=== PATIENT | male | born 1965 | race Caucasian/White ===

== ENCOUNTER → 2024-06-09 14:38 | Outpatient (REF) | payer OTHER, SELFPAY | LOC: RAD 14:38 | PROVIDERS: ATTENDING PHYSICIAN Nurse Practitioner Family | DX: R10.9 Unspecified abdominal pain (principal) | CPT/HCPCS: 76775 ==

== ENCOUNTER → 2024-07-22 10:21 | Outpatient (REF) | payer OTHER, SELFPAY | LOC: RAD 10:21 | PROVIDERS: ATTENDING PHYSICIAN Nurse Practitioner Family | DX: R10.9 Unspecified abdominal pain (principal) | CPT/HCPCS: 76882 ==

== ENCOUNTER 2024-09-07 11:48 | Emergency (ER) | payer OTHER, SELFPAY ==
[2024-09-07 11:57] VITALS: BP 136/89
[2024-09-07 12:19] LABS: % Basophils 0.4 % (0-2); % Eosinophils 1.4 % (0-6); % Immature Granulocytes 0.4 % (0-0.5); % Lymphocytes 21.4 % (20.5-51.1); % Monocytes 9.4 % (1.7-9.3); Absolute Eosinophils 0.1 10^3/uL (0-0.7); Absolute Lymphocytes 1.2 10^3/uL (1.2-3.4); Absolute Monocytes 0.5 10^3/uL (0.1-0.6); Absolute Neutrophils 3.7 10^3/uL (1.4-6.5); Hematocrit 43.2 % (39.0-52.0); Hemoglobin 14.9 g/dL (13.0-18.0); Mean Corp Hgb Conc. 34.5 g/dL (33.0-37.0); Mean Corpuscular Hgb 32.3 pg (27.0-31.0); Mean Corpuscular Volume 93.7 fL (80.0-94.0); Mean Platelet Volume 10.1 fL (7.4-10.4); Nucleated Red Blood Cells % 0 % (-); Platelet Count 233 10^3/uL (130-400); Red Blood Cell Count 4.61 10^6/uL (4.70-6.10); Red Cell Dist. Width 12.6 % (11.5-14.5); White Blood Cell Count 5.6 10^3/uL (4.8-10.8)
[2024-09-07 12:41] LABS: Blood Urea Nitrogen 18 mg/dl (9-20); Glucose 107 mg/dl (70-99); eGFR > 60.00
[2024-09-07 12:42] LABS: ALT (SGPT) 30 U/L (0-50); AST (SGOT) 33 U/L (17-59); Albumin 4.6 g/dl (3.5-5.0); Alkaline Phosphatase 52 U/L (38-126); Calcium 9.9 mg/dl (8.4-10.2); Carbon Dioxide 30 mmol/L (22-30); Chloride 108 mmol/L (98-107); Potassium 4.7 mmol/L (3.5-5.1); Sodium 142 mmol/L (135-145); Total Bilirubin 0.9 mg/dl (0.2-1.3); Total Protein 7.1 g/dl (6.3-8.2)
--- NOTE | 2024-09-07 14:33 | ED.GENMED ---
History of Present Illness
General
Chief Complaint: Back Pain
Source: patient
Exam Limitations: none
Time Seen by Provider: 09/07/24 14:25
History of Present Illness
History of Present Illness:
See MDM
Past History
Past History
ED Past Medical History: HTN, Hypercholesterolemia and Other
ED Past Surgical History: None
Social History
Tobacco: Non-smoker
Alcohol: None
Drug: None
Personal:
Living: with family
Employment: Employed
Family History
Family History: Other (father with atrial fibrillation)
Phy Exam
Physical Exam
Physical Exam:
See MDM
Course
Orders/Labs/Results
Orders:
Orders
09/07/24 12:05
Complete Blood Count/With Diff Urgent
Comprehensive Metabolic Panel Urgent
09/07/24 14:32
Ketorolac [Toradol] 30 mg IV NOW STA
09/07/24 14:33
CT Abd/pelvis W Iv Cont Urgent
Comment:
Reason For Exam: R flank pain x 5 months
09/07/24 14:39
Urinalysis Reflex To Culture Urgent
Date Specimen was Collected: 09/07/24
Time Specimen was Collected: 14:38
Abnormal Lab Results
09/07/24 09/07/24
12:05 14:39
RBC 4.61 L 10^6/uL
(4.70-6.10)
MCH 32.3 H pg
(27.0-31.0)
Monocytes % 9.4 H %
(1.7-9.3)
Chloride 108 H mmol/L
(98-107)
Glucose 107 H mg/dl
(70-99)
Urine Ketones 1+ A
(Negative)
09/07/24 12:05
09/07/24 12:05
Vital Signs
Initial and Last Documented VS:
Initial Vital Signs
Temp Pulse Resp BP Pulse Ox
97.9 F 85 16 136/89 97
09/07/24 11:57 09/07/24 11:57 09/07/24 11:57 09/07/24 11:57 09/07/24 11:57
Last Documented Vital Signs
Temp Pulse Resp BP Pulse Ox
97.9 F 64 18 133/92 97
09/07/24 11:57 09/07/24 14:43 09/07/24 14:43 09/07/24 14:43 09/07/24 14:43
MDM/Problems Addressed
Differential Diagnosis Includes:
HPI and MDM Narrative:
58-year-old male presenting for evaluation of right flank pain that radiates to his right groin. This has been going on for about 5 months, per patient. He states he did a musculoskeletal ultrasound and they did a kidney ultrasound. Other than an
incidental lipoma on his right flank, they have not yet figured out the problem. He states it is not worse with any sort of food intake or exertion. He denies urinary symptoms.
Blood work was done prior to my assessment showing no significant lab abnormalities. On my exam, I cannot reproduce discomfort. He denies rash. Given the persistent nature of symptoms, will obtain CT scan. Will give dose of Toradol.
Physical exam
General: Well appearing and non-toxic
HEENT: protecting airway
Neck: appears supple
CV: No evidence of cyanosis
Resp: No accessory muscle use
Abd: Non-distended. Soft and nontender
Extremities: No deformities
Neuro: alert
Psych: Normal affect
Skin: Intact
Problems Addressed including Acute and Chronic Conditions affecting care:
1. Right flank pain
Acuity: Chronic
Prognosis: stable
Details: Given chronicity, will obtain CT scan
Updates
CT does show large stool burden. There is no other pathology noted. Discussed MiraLAX for next 2 days and return precautions
Differential Diagnosis (but not limited to): Musculoskeletal pain, kidney stone, colitis
Testing considered: Abdominal x-ray
Drug therapy (if applicable): OTC meds, please see d/c instruction regarding Rx drugs
Amount and/or Complexity of Data Reviewed
Clinical info obtained from: Patient
External data reviewed: Recent renal ultrasound showing no acute abnormality
Labs I independently reviewed (but not limited to): White blood cell count normal, LFTs normal, creatinine normal
Radiology: The CT scan was personally and independently reviewed. In addition, official CT report reviewed.
Pulse Ox: not hypoxic
EKG independently reviewed: N/A
Oncology Admin: N/A
Critical Care: N/A
Risk of Complication:
Social Determinants of health: Good social support
Discussed with other providers: N/A
Escalation of Care includes Admit/Obs: After being observed in the Emergency Department, pt stable for discharge.
Occasional wrong word or 'sound a like' substitutions may have occurred due to the inherent limitations of voice recognition software. Read the chart carefully and recognize, using context, where substitutions have occurred.
*Critical Care Note
Total Time (30-74mins, 75-104mins- exclusive of procedures): Not Applicable
ED Attending Note
-
Portions of this chart may have been created with voice recognition software.� Occasional wrong word or��sound alike� substitutions may have occurred due to the inherent limitations of voice recognition software.
Discharge Plan
Departure
Patient Disposition: Home (Routine Discharge)
Date of Disposition: 09/07/24
Time of Disposition: 17:49
Patient with high blood pressure during this ER visit?: No
Discharge Problem:
Abdominal pain
Prescriptions:
No Action
Aciphex
20 mg PO BID
Multi-Vitamin Daily
1 tab PO DAILY
sulfamethoxazole-trimethoprim 1 TABLET tablet
1 tab PO BID Qty: 13 0RF
phenazopyridine 200 MG tablet
200 mg PO TID Qty: 12 0RF
cyclobenzaprine 10 mg tablet
10 mg PO HS PRN (Reason: muscle spasm) Qty: 10 0RF
lidocaine 5 % adhesive patch,medicated
1 patch topical DAILY PRN (Reason: pain) Qty: 15 0RF
prednisone 10 mg Tablet
See Rx Instructions .ROUTE .COMPLEX Qty: 45 0RF
Rx Instructions:
Take By Mouth:
50 mg daily x3 days, 40 mg daily x3 days,
30 mg daily x3 days, 20 mg daily x3 days,
10 mg daily x3 days
triamcinolone acetonide [Nasacort] 55 mcg aerosol,spray
1 spray intranasal DAILY Qty: 16.9 0RF
Cortisporin-TC 3.3-3-10-0.5 mg/mL drops,suspension
5 drp otic (ear) TID Qty: 10 0RF
Referrals:
Antonia Nayak CRNP [Family Provider] -
Activity Restrictions/Additional Instructions:
Please return for any worsening symptoms.
You may return at any time if you have further concerns.
Please follow up with your doctor at the first available appointment, preferably this week.
As we discussed, the CT did not show any evidence of abnormality which would explain your symptoms other than a component of constipation. Please take MiraLAX for the next few days.
Thank you for choosing [facility].
Interventions
Interventions:
*Risk Screen - Suicide Last Done: 09/07/24 12:01
*Neglect/Abuse Screening Last Done: 09/07/24 12:01
*ED- Fall Risk Assessment Last Done: 09/07/24 14:51
ED-Musculoskeletal Assessment Last Done: 09/07/24 14:51
Discharge Date and Time
Print Language: SLOVAK
[2024-09-07] MEDS: TORADOL 30 MG IV (14:39)
[2024-09-07 14:42] VITALS: BMI 28.9
[2024-09-07 14:43] VITALS: BP 133/92
[2024-09-07 15:30] LABS: Urine Albumin Negative (Neg - Trace); Urine Bilirubin Negative (Negative); Urine Character Clear (Clear); Urine Color Yellow; Urine Glucose Negative (Negative); Urine Ketone 1+ (Negative); Urine Leukocyte Negative (Negative); Urine Nitrite Negative (Negative); Urine Occult Blood Negative (Negative); Urine Urobilinogen Negative (Neg - 1+)
== END 2024-09-07 17:59 | disposition home or self-care (01) ==
LOC: EMR 11:48
PROVIDERS: Emergency Medicine; EMERGENCY PHYSICIAN Student in an Organized Health Care Education/Training Program; FAMILY PHYSICIAN Nurse Practitioner Family
DX: R10.9 Unspecified abdominal pain (principal); D17.1 Benign lipomatous neoplasm of skin and subcutaneous tissue of trunk; I10 Essential (primary) hypertension; E78.00 Pure hypercholesterolemia, unspecified
CPT/HCPCS: 99284; 96374; 74177; 80053; 81003; 85025; Q9967